=== PATIENT | female | born 1985 | race African-American/Black ===

== ENCOUNTER → 2017-02-16 | Outpatient (REF) | payer OTHER ==
[2017-02-16 18:05] LABS: MEAN CORPUSCULAR HEMOGLOBIN 23.5 pg (27.0-33.0); MEAN CORPUSCULAR HGB CONC 31.7 g/dl (32.0-36.5); RED CELL DISTRIBUTION WIDTH 14.5 % (11.5-14.5); WHITE BLOOD COUNT 11.5 K/mm3 (4.0-10.0)
[2017-02-16 18:56] LABS: ALBUMIN 3.3 GM/DL (3.2-5.2); ALBUMIN/GLOBULIN RATIO 0.72 (1.00-1.93); ALKALINE PHOSPHATASE 139 U/L (45-117); ALT/SGPT 59 U/L (12-78); ANION GAP 10 MEQ/L (8-16); AST/SGOT 25 U/L (15-37); BILIRUBIN,TOTAL 0.3 MG/DL (0.2-1.0); BLOOD UREA NITROGEN 12 MG/DL (7-18); CALCIUM LEVEL 8.6 MG/DL (8.5-10.1); CARBON DIOXIDE LEVEL 28 MEQ/L (21-32); CHLORIDE LEVEL 104 MEQ/L (98-107); CREATININE FOR GFR 0.84 MG/DL (0.55-1.02); GLOMERULAR FILTRATION RATE > 60.0 (>60); GLUCOSE, FASTING 84 MG/DL (70-105); POTASSIUM SERUM 4.2 MEQ/L (3.5-5.1); SODIUM LEVEL 142 MEQ/L (136-145); TOTAL PROTEIN 7.9 GM/DL (6.4-8.2)
== END ==
LOC: M SFHCLERA 14:23
PROVIDERS: ATTEND Family Medicine
DX: K59.00 Constipation, unspecified (principal); K64.9 Unspecified hemorrhoids

== ENCOUNTER → 2017-06-08 | Outpatient (REF) | payer OTHER | LOC: M SFHCLERA 11:02 | PROVIDERS: ATTEND Family Medicine | DX: A64 Unspecified sexually transmitted disease (principal) ==

== ENCOUNTER → 2017-07-20 | Outpatient (REF) | payer OTHER ==
[2017-07-21 11:01] LABS: CHLAMYDIA DNA AMPLIFICATION NEGATIVE (NEGATIVE); GC DNA AMPLIFICATION NEGATIVE (NEGATIVE)
[2017-07-22 11:25] LABS: HIV 1&2 SCREEN CENTAUR NEGATIVE (NEGATIVE)
[2017-07-23 08:06] LABS: HPV HYBRID CAPTURE II Negative (Negative)
== END ==
LOC: M SFHCLERA 10:14
DX: Z11.3 Encounter for screening for infections with a predominantly sexual mode of transmission (principal)

== ENCOUNTER → 2017-10-29 | Outpatient (CLI) | payer OTHER | LOC: M LRY 13:36 | DX: K59.00 Constipation, unspecified (principal) | CPT/HCPCS: 74021 ==

== ENCOUNTER → 2017-11-09 | Outpatient (REF) | payer OTHER ==
[2017-11-09 18:01] LABS: ESTIMATED AVERAGE GLUCOSE 120 MG/DL (60-110); HEMOGLOBIN A1c 5.8 %
== END ==
LOC: M SFHCLERA 13:57
DX: E66.01 Morbid (severe) obesity due to excess calories (principal)

== ENCOUNTER → 2018-01-18 | Outpatient (REF) | payer OTHER ==
[2018-01-18 22:21] LABS: CHLAMYDIA DNA AMPLIFICATION NEGATIVE (NEGATIVE); GC DNA AMPLIFICATION NEGATIVE (NEGATIVE)
[2018-01-20 09:38] LABS: HEPATITIS B CORE ANTIBODY IGM NEGATIVE (NEGATIVE)
[2018-01-20 09:39] LABS: HEPATITIS B SURFACE ANTIGEN NEGATIVE (NEGATIVE)
[2018-01-20 09:40] LABS: HIV 1&2 SCREEN CENTAUR NEGATIVE (NEGATIVE)
[2018-01-20 09:41] LABS: HEPATITIS A ANTIBODY IGM NEGATIVE (NEGATIVE)
== END ==
LOC: M SFHCLERA 11:57
DX: Z72.51 High risk heterosexual behavior (principal)

== ENCOUNTER → 2018-04-26 | Outpatient (REF) | payer OTHER | LOC: M SFHCLERA 09:45 | DX: E01.0 Iodine-deficiency related diffuse (endemic) goiter (principal) ==

== ENCOUNTER → 2018-06-07 | Outpatient (CLI) | payer OTHER ==
[2018-06-07 20:28] LABS: BASO # 0.1 10^3/uL (0.0-0.2); BASO % 0.5 % (0.0-1.0); EOS # 0.7 10^3/uL (0.0-0.50); EOS % 6.6 % (0.0-3.0); HEMATOCRIT 35.8 % (36.0-47.0); HEMOGLOBIN 11.5 g/dl (12.0-15.5); IMMATURE GRANULOCYTE % 0.4 % (0-3.0); LYMPH # 3.9 10^3/uL (1.5-4.5); LYMPH % 39.6 % (24.0-44.0); MEAN CORPUSCULAR HEMOGLOBIN 22.2 pg (27.0-33.0); MEAN CORPUSCULAR HGB CONC 32.1 g/dl (32.0-36.5); MONO # 0.7 10^3/uL (0.0-0.8); MONO % 6.7 % (0.0-5.0); NEUTROPHILS # 4.6 10^3/uL (1.8-7.7); NEUTROPHILS % 46.2 % (36.0-66.0); PLATELET COUNT, AUTOMATED 181 10^3/uL (150-450); RED BLOOD COUNT 5.19 10^6/uL (4.00-5.40); RED CELL DISTRIBUTION WIDTH 13.4 % (11.5-14.5)
[2018-06-07 20:32] LABS: HEMATOCRIT 40.9 % (36.0-47.0)
[2018-06-07 20:34] LABS: ALBUMIN 3.6 GM/DL (3.2-5.2); ALBUMIN/GLOBULIN RATIO 0.95 (1.00-1.93); ALKALINE PHOSPHATASE 118 U/L (45-117); ALT/SGPT 55 U/L (12-78); ANION GAP 11 MEQ/L (8-16); AST/SGOT 28 U/L (7-37); BILIRUBIN,TOTAL 0.4 MG/DL (0.2-1.0); BLOOD UREA NITROGEN 5 MG/DL (7-18); CALCIUM LEVEL 8.8 MG/DL (8.5-10.1); CARBON DIOXIDE LEVEL 25 MEQ/L (21-32); CHLORIDE LEVEL 107 MEQ/L (98-107); CREATININE FOR GFR 0.66 MG/DL (0.55-1.30); FERRITIN 114 NG/ML (8-252); GLOMERULAR FILTRATION RATE > 60.0 (>60); GLUCOSE, FASTING 96 MG/DL (70-100); IRON (FE) 73 UG/DL (50-170); MAGNESIUM LEVEL 1.9 MG/DL (1.8-2.4); PERCENT SATURATION 27.5 % (13.2-45.0); PHOSPHORUS LEVEL 3.7 MG/DL (2.5-4.9); POTASSIUM SERUM 3.9 MEQ/L (3.5-5.1); SODIUM LEVEL 143 MEQ/L (136-145); TOTAL IRON BINDING CAPACITY 265 UG/DL (250-450); TOTAL PROTEIN 7.4 GM/DL (6.4-8.2)
[2018-06-07 20:44] LABS: TOTAL 25(OH) VITAMIN D 31.8 NG/ML (30.0-100.0); VITAMIN B12 LEVEL > 2000 PG/ML (247-911)
[2018-06-07 20:45] LABS: ESTIMATED AVERAGE GLUCOSE 111 MG/DL (60-110); HEMOGLOBIN A1c 5.5 %
[2018-06-08 11:17] LABS: PRETREATED FOLATE FOR RBCFOL 10.7 NG/ML; RBC FOLATE 549 NG/ML (280-791)
[2018-06-11 10:12] LABS: VITAMIN B1 LEVEL WHOLE BLOOD 81.8 nmol/L (66.5-200.0)
== END ==
LOC: M LRY 14:43
DX: K91.2 Postsurgical malabsorption, not elsewhere classified (principal); Z98.84 Bariatric surgery status; E55.9 Vitamin D deficiency, unspecified
CPT/HCPCS: 83550

== ENCOUNTER → 2018-06-14 | Outpatient (REF) | payer OTHER ==
[2018-06-14 23:19] LABS: CHLAMYDIA DNA AMPLIFICATION NEGATIVE (NEGATIVE); GC DNA AMPLIFICATION NEGATIVE (NEGATIVE)
== END ==
LOC: M SFHCLERA 16:06
DX: R30.0 Dysuria (principal)

== ENCOUNTER → 2018-10-18 | Outpatient (REF) | payer OTHER ==
[2018-10-18 21:49] LABS: CHLAMYDIA DNA AMPLIFICATION NEGATIVE (NEGATIVE); GC DNA AMPLIFICATION NEGATIVE (NEGATIVE)
== END ==
LOC: M SFHCLERA 17:21
PROVIDERS: ATTEND Nurse Practitioner Family
DX: N89.8 Other specified noninflammatory disorders of vagina (principal)

== ENCOUNTER → 2018-11-08 | Outpatient (CLI) | payer OTHER | LOC: M LRY 16:05 | PROVIDERS: ATTEND Physician Assistant Surgical | DX: Z53.9 Procedure and treatment not carried out, unspecified reason (principal); E55.9 Vitamin D deficiency, unspecified; K91.2 Postsurgical malabsorption, not elsewhere classified; Z98.84 Bariatric surgery status ==

== ENCOUNTER → 2018-11-09 | Outpatient (CLI) | payer OTHER ==
[2018-11-09 19:46] LABS: ALT/SGPT 51 U/L (12-78); BILIRUBIN,TOTAL 0.5 MG/DL (0.2-1.0); BLOOD UREA NITROGEN 13 MG/DL (7-18); CALCIUM LEVEL 9.3 MG/DL (8.5-10.1); CARBON DIOXIDE LEVEL 24 MEQ/L (21-32); CHLORIDE LEVEL 106 MEQ/L (98-107); CREATININE FOR GFR 0.62 MG/DL (0.55-1.30); FERRITIN 118 NG/ML (8-252); GLOMERULAR FILTRATION RATE > 60.0 (>60); GLUCOSE, FASTING 93 MG/DL (70-100); IRON (FE) 64 UG/DL (50-170); PERCENT SATURATION 18.3 % (13.2-45.0); PHOSPHORUS LEVEL 4.4 MG/DL (2.5-4.9); SODIUM LEVEL 139 MEQ/L (136-145); TOTAL IRON BINDING CAPACITY 349 UG/DL (250-450)
[2018-11-09 19:51] LABS: TOTAL 25(OH) VITAMIN D 36.6 NG/ML (30.0-100.0); VITAMIN B12 LEVEL 1846 PG/ML (247-911)
[2018-11-09 21:51] LABS: BASO % 0.4 % (0.0-1.0); EOS # 0.3 10^3/uL (0.0-0.50); EOS % 2.7 % (0.0-3.0); HEMATOCRIT 32.3 % (36.0-47.0); HEMOGLOBIN 10.8 g/dl (12.0-15.5); LYMPH # 4.3 10^3/uL (1.5-4.5); LYMPH % 43.5 % (24.0-44.0); MEAN CORPUSCULAR HEMOGLOBIN 23.3 pg (27.0-33.0); MEAN CORPUSCULAR HGB CONC 33.4 g/dl (32.0-36.5); MEAN CORPUSCULAR VOLUME 69.6 fl (80.0-96.0); MONO # 0.5 10^3/uL (0.0-0.8); MONO % 5.4 % (0.0-5.0); NEUTROPHILS # 4.7 10^3/uL (1.8-7.7); NEUTROPHILS % 47.7 % (36.0-66.0); PLATELET COUNT, AUTOMATED 222 10^3/uL (150-450); RED BLOOD COUNT 4.64 10^6/uL (4.00-5.40); WHITE BLOOD COUNT 9.8 10^3/uL (4.0-10.0)
[2018-11-09 22:01] LABS: HEMATOCRIT 32.3 % (36.0-47.0)
== END ==
LOC: M WUC 17:57
PROVIDERS: ATTEND Physician Assistant Surgical
DX: K91.2 Postsurgical malabsorption, not elsewhere classified (principal); E55.9 Vitamin D deficiency, unspecified; Z98.84 Bariatric surgery status

== ENCOUNTER → 2018-11-09 | Outpatient (CLI) | payer OTHER | LOC: M LRY 16:53 | PROVIDERS: ATTEND Surgery | DX: K91.2 Postsurgical malabsorption, not elsewhere classified (principal); Z98.84 Bariatric surgery status; E55.9 Vitamin D deficiency, unspecified ==

== ENCOUNTER → 2018-12-09 | Outpatient (REF) | payer OTHER ==
[2018-12-09 22:20] LABS: CHLAMYDIA DNA AMPLIFICATION NEGATIVE (NEGATIVE); GC DNA AMPLIFICATION NEGATIVE (NEGATIVE)
== END ==
LOC: M SFHCLERA 18:41
PROVIDERS: ATTEND Nurse Practitioner Family
DX: R30.0 Dysuria (principal)

== ENCOUNTER → 2019-01-17 | Outpatient (REF) | payer OTHER ==
[2019-01-18 09:46] LABS: CHLAMYDIA DNA AMPLIFICATION NEGATIVE (NEGATIVE); GC DNA AMPLIFICATION NEGATIVE (NEGATIVE)
[2019-01-19 10:56] LABS: HIV 1&2 SCREEN CENTAUR NEGATIVE (NEGATIVE)
== END ==
LOC: M SFHCLERA 10:46
PROVIDERS: ATTEND Nurse Practitioner Family
DX: Z11.3 Encounter for screening for infections with a predominantly sexual mode of transmission (principal)

== ENCOUNTER → 2019-05-18 | Outpatient (CLI) | payer OTHER ==
[2019-05-18 16:50] LABS: ALBUMIN 3.9 GM/DL (3.2-5.2); ALT/SGPT 62 U/L (12-78); BILIRUBIN,TOTAL 0.4 MG/DL (0.2-1.0); BLOOD UREA NITROGEN 10 MG/DL (7-18); CALCIUM LEVEL 9.2 MG/DL (8.5-10.1); CARBON DIOXIDE LEVEL 24 MEQ/L (21-32); CHLORIDE LEVEL 105 MEQ/L (98-107); CREATININE FOR GFR 0.77 MG/DL (0.55-1.30); FERRITIN 270 NG/ML (8-252); GLOMERULAR FILTRATION RATE > 60.0 (>60); GLUCOSE, FASTING 82 MG/DL (70-100); IRON (FE) 178 UG/DL (50-170); PERCENT SATURATION 57.2 % (13.2-45.0); PHOSPHORUS LEVEL 3.6 MG/DL (2.5-4.9); POTASSIUM SERUM 4.1 MEQ/L (3.5-5.1); SODIUM LEVEL 141 MEQ/L (136-145); TOTAL IRON BINDING CAPACITY 311 UG/DL (250-450)
[2019-05-18 16:51] LABS: HEMOGLOBIN 11.2 g/dl (12.0-15.5); MEAN CORPUSCULAR HEMOGLOBIN 23.5 pg (27.0-33.0); MEAN CORPUSCULAR HGB CONC 32.9 g/dl (32.0-36.5); MEAN CORPUSCULAR VOLUME 71.3 fl (80.0-96.0); PLATELET COUNT, AUTOMATED 229 10^3/uL (150-450); RED BLOOD COUNT 4.77 10^6/uL (4.00-5.40)
[2019-05-18 16:54] LABS: WHITE BLOOD COUNT 10.9 10^3/uL (4.0-10.0)
[2019-05-18 16:58] LABS: TOTAL 25(OH) VITAMIN D 38.5 NG/ML (30.0-100.0)
[2019-05-18 16:59] LABS: VITAMIN B12 LEVEL 1486 PG/ML (247-911)
[2019-05-18 17:24] LABS: BASOPHILS 1 % (0-1); LYMPHOCYTES 39 % (16-44); MONOCYTES 5 % (0-5); NEUTROPHILS 55 % (28-66); PLATELET ESTIMATE NORMAL (NORMAL)
[2019-05-18 17:26] LABS: HYPOCHROMASIA 1+; MICROCYTOSIS 1+; TARGET CELLS 1+
[2019-05-18 17:27] LABS: HEMOGLOBIN A1c 5.1 %
== END ==
LOC: M LRY 11:50
PROVIDERS: ATTEND Physician Assistant
DX: K91.2 Postsurgical malabsorption, not elsewhere classified (principal); Z98.84 Bariatric surgery status; E55.9 Vitamin D deficiency, unspecified

== ENCOUNTER 2020-03-17 23:36 | Emergency (ER) | payer OTHER ==
[~2020-03-17] VITALS: Ht 165.1 cm; Wt 77.3 kg
[2020-03-18] MEDS ORDERED: CODCAP25 PO (00:02)
[2020-03-18] MEDS ORDERED: BIOT1CAP2 PO (00:02)
[2020-03-18] MEDS ORDERED: D3400CAP PO (00:02)
[2020-03-18] MEDS ORDERED: SM G150T PO (00:02)
[2020-03-18] MEDS ORDERED: B-12100010 PO (00:02)
[2020-03-18] MEDS ORDERED: VITA500C24 PO (00:02)
[2020-03-18] MEDS ORDERED: IRON325T2 PO (00:02)
[2020-03-18] MEDS ORDERED: MULTTAB86 PO (00:02)
[2020-03-18] MEDS: MORPHINE 2 MG/ML 1ML VIAL (J2270) IV PRN ×2 (00:55→01:32)
[2020-03-18 01:07] LABS: BASO % 0.2 % (0.0-1.0); EOS # 0.1 10^3/uL (0.0-0.5); HEMATOCRIT 34.9 % (36.0-47.0); HEMOGLOBIN 11.6 g/dl (12.0-15.5); LYMPH # 3.4 10^3/uL (1.5-5.0); MEAN CORPUSCULAR HEMOGLOBIN 24.1 pg (27.0-33.0); MEAN CORPUSCULAR HGB CONC 33.2 g/dl (32.0-36.5); MEAN CORPUSCULAR VOLUME 72.4 fl (80.0-96.0); MONO # 0.4 10^3/uL (0.0-0.8); MONO % 3.2 % (0.0-5.0); NEUTROPHILS # 8.6 10^3/uL (1.5-8.5); NEUTROPHILS % 68.4 % (36.0-66.0); PLATELET COUNT, AUTOMATED 203 10^3/uL (150-450); RED BLOOD COUNT 4.82 10^6/uL (4.00-5.40); WHITE BLOOD COUNT 12.6 10^3/uL (4.0-10.0)
[2020-03-18] MEDS ORDERED: ISOVUE-370 76% 100ML VIAL As Ordered ONE (01:07)
[2020-03-18 01:41] LABS: ALBUMIN 3.9 GM/DL (3.2-5.2); ALT/SGPT 41 U/L (12-78); BILIRUBIN,DIRECT < 0.1 MG/DL (0.0-0.2); BILIRUBIN,TOTAL 0.5 MG/DL (0.2-1.0); LIPASE 17 U/L (73-393); TOTAL PROTEIN 8.7 GM/DL (6.4-8.2)
--- NOTE | 2020-03-18 01:51 | REPVR ---
PROCEDURE INFORMATION: Exam: CT Angiography Abdomen and Pelvis With Contrast Exam date and time: 03/18/2020 1:17 AM Age: 34 years old Clinical indication: Abdominal pain; Generalized; Additional info: Abd pain radiates to chest TECHNIQUE: Imaging protocol: Computed tomographic angiography of the abdomen and pelvis with intravenous contrast material. 3D rendering (Not supervised by radiologist): MIP and/or 3D reconstructed images were created by the technologist. Radiation optimization: All CT scans at this facility use at least one of these dose optimization techniques: automated exposure control; mA and/or kV adjustment per patient size (includes targeted exams where dose is matched to clinical indication); or iterative reconstruction. Contrast material: ISOVUE 370; Contrast volume: 100 ml; Contrast route: INTRAVENOUS (IV); COMPARISON: US PELVIC NON-OB COMPLETE 2013-07-28 20:49 FINDINGS: Mediastinum: Small gastroesophageal sliding type hiatal hernia. Mild gastro-esophageal thickening. Question distal esophagitis. Aorta: No aortic aneurysm. No aortic dissection. Celiac trunk and mesenteric arteries: No occlusion or significant stenosis. Renal arteries: No occlusion or significant stenosis. Right iliac arteries: No occlusion or significant stenosis. Left iliac arteries: No occlusion or significant stenosis. Other veins: Patent retroaortic left renal vein. Liver: No mass. Gallbladder and bile ducts: Unremarkable. No calcified stones. No ductal dilation. Pancreas: Unremarkable. No mass. No ductal dilation. Spleen: Unremarkable. No splenomegaly. Adrenals: Unremarkable. No mass. Kidneys and ureters: Unremarkable. No solid mass. No hydronephrosis. Stomach and bowel: Irregularity of the gastric wall at the surgical site on axial series 501, image 44, could be a source for perforation. 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 Appendix: No evidence of appendicitis. Intraperitoneal space: Scattered trace pneumoperitoneum, evidence of perforation. Small amount of free fluid in the pelvis. Small amount of free fluid in the pelvis, most likely physiological pelvic intraperitoneal fluid as a result of patient's premenopausal reproductive status. Lymph nodes: Unremarkable. No enlarged lymph nodes. Bladder: Unremarkable. No mass. Reproductive: Unremarkable as visualized. Bones/joints: No acute fracture. No dislocation. Soft tissues: Small fat protruding umbilical hernia. IMPRESSION: 1. Scattered trace pneumoperitoneum, evidence of perforation. 2. Irregularity of the gastric wall at the gastric surgical site on axial series 501, image 44, could be a source for perforation. 3. Small amount of free fluid in the pelvis. 4. Small hiatal hernia. Mild gastro-esophageal thickening. Question distal esophagitis. 5. No acute arterial abnormality. Electronically signed by: Matthieu Calloway On 03/18/2020 01:51:06 AM
--- NOTE | 2020-03-18 02:10 | REPVR ---
PROCEDURE INFORMATION: Exam: CT Angiography Chest With Contrast Exam date and time: 03/18/2020 1:17 AM Age: 34 years old Clinical indication: Chest pain; Radiating; Additional info: Abd pain radiates to chest TECHNIQUE: Imaging protocol: Computed tomographic angiography of the chest with intravenous contrast. 3D rendering (Not supervised by radiologist): MIP and/or 3D reconstructed images were created by the technologist. Radiation optimization: All CT scans at this facility use at least one of these dose optimization techniques: automated exposure control; mA and/or kV adjustment per patient size (includes targeted exams where dose is matched to clinical indication); or iterative reconstruction. Contrast material: ISOVUE 370; Contrast volume: 100 ml; Contrast route: INTRAVENOUS (IV); COMPARISON: CR ABDOMEN FLAT/UPRIGHT, PA CHEST 2017-10-29 13:48 FINDINGS: Pulmonary arteries: No filling defects in the pulmonary arteries to suggest pulmonary emboli. Aorta: Unremarkable. No aortic aneurysm. No aortic dissection. Lungs: Dependent subsegmental pulmonary atelectasis. Pleural space: Unremarkable. No pneumothorax. No pleural effusion. Heart: Unremarkable. No cardiomegaly. No pericardial effusion. Lymph nodes: Unremarkable. No enlarged lymph nodes. Intraperitoneal space: Free air under the diaphragm. Bones/joints: Mild dextroconvex thoracic curvature. Soft tissues: Unremarkable. IMPRESSION: 1. No filling defects in the pulmonary arteries to suggest pulmonary emboli. 2. Free air under the diaphragm. Electronically signed by: Matthieu Calloway On 03/18/2020 02:10:09 AM
[2020-03-18] MEDS ORDERED: PIPERACILLIN/TAZOBACTAM SOD 3.375 GM in D5W MINI-BAG PLUS 50 ML IV ONE (02:15)
[2020-03-18] MEDS ORDERED: MORPHINE 2 MG/ML 1ML VIAL (J2270) IV PRN (03:30)
[2020-03-18] MEDS ORDERED: NS 1,000 ML IV ONE (03:30)
[2020-03-18] MEDS ORDERED: FLUCONAZOLE 400 MG in IV 1 EA IV ONE (03:30)
[2020-03-18] MEDS ORDERED: PANTOPRAZOLE 40MG VIAL (C9113 PER 1) IV ONE (03:30)
[2020-03-18 05:23] VITALS: BP 114/61
--- NOTE | 2020-03-21 21:31 | ECGEPIP ---
[facility] - ED Test Date: 2020-03-18 Pat Name: JOSE LUIS ACOSTA Department: Room: - Gender: Female [employer]: NR : [id number] Requested By: STEPHIE Ferrari Order Number: [id number] Reading MD: Tri Lopez Measurements Intervals [place] Rate: 111 P: 42 ND: 120 QRS: 1 QRSD: 82 T: 28 QT: 332 QTc: 452 Interpretive Statements SINUS TACHYCARDIA POSSIBLE ANTERIOR MYOCARDIAL INFARCTION, PROBABLY OLD ABNORMAL RHYTHM ECG SEE SCANNED DOWNTIME REPORT
== END 2020-03-18 05:26 | disposition short-term general hospital (02) ==
LOC: M ED 23:36 → ENRESERV 03-18 05:04 → M ED 03-18 05:26
DX: K31.89 Other diseases of stomach and duodenum (principal); R00.0 Tachycardia, unspecified; I10 Essential (primary) hypertension; K44.9 Diaphragmatic hernia without obstruction or gangrene; Z98.84 Bariatric surgery status; F17.200 Nicotine dependence, unspecified, uncomplicated; Z79.899 Other long term (current) drug therapy
CPT/HCPCS: 71275; 74174; 80047; 80076; 83605; 83690; 84702; 85025; 93005; 96361; 96365; 96375; 96376; 99284; C9113; J1450; J2270; J2543; Q9967; U0002

== ENCOUNTER → 2020-06-18 | Outpatient (REF) | payer OTHER ==
[~2020-06-18] MED LIST: B-12100010 PO; BIOT1CAP2 PO; CODCAP25 PO; D3400CAP PO; IRON325T2 PO; MULTTAB86 PO; SM G150T PO; VITA500C24 PO
[2020-06-18 14:27] LABS: BASO # 0.1 10^3/uL (0.0-0.2); BASO % 0.6 % (0.0-1.0); EOS # 0.3 10^3/uL (0.0-0.5); HEMATOCRIT 30.5 % (36.0-47.0); HEMOGLOBIN 9.8 g/dl (12.0-15.5); LYMPH # 3.1 10^3/uL (1.5-5.0); LYMPH % 36.5 % (24.0-44.0); MEAN CORPUSCULAR HEMOGLOBIN 22.6 pg (27.0-33.0); MEAN CORPUSCULAR HGB CONC 32.1 g/dl (32.0-36.5); MEAN CORPUSCULAR VOLUME 70.3 fl (80.0-96.0); MONO # 0.3 10^3/uL (0.0-0.8); MONO % 3.6 % (0.0-5.0); NEUTROPHILS # 4.8 10^3/uL (1.5-8.5); NEUTROPHILS % 55.9 % (36.0-66.0); PLATELET COUNT, AUTOMATED 234 10^3/uL (150-450); RED BLOOD COUNT 4.34 10^6/uL (4.00-5.40); WHITE BLOOD COUNT 8.6 10^3/uL (4.0-10.0)
[2020-06-18 15:19] LABS: HIV 1&2 SCREEN CENTAUR NEGATIVE (NEGATIVE)
== END ==
LOC: M PLALAB 09:30
PROVIDERS: ATTEND Nurse Practitioner Family
DX: N92.6 Irregular menstruation, unspecified (principal)